=== PATIENT | female | born 1990 | race Caucasian/White ===

== ENCOUNTER 2021-08-24 09:52 | Emergency (ER) | payer OTHER ==
[~2021-08-24] VITALS: Ht 170.2 cm; Wt 89.4 kg
[2021-08-24 09:57] VITALS: BP 142/84
--- NOTE | 2021-08-24 10:02 | NUR ---
PT TRIAGED AND RETURNED TO LOBBY AT THIS TIME
--- NOTE | 2021-08-24 10:57 | NUR ---
PT AMBULATED TO BED 5.
[2021-08-24 11:04] VITALS: BP 133/85
--- NOTE | 2021-08-24 11:11 | NUR ---
30 Y/O F C/O RASH/ALLERGIC REACTION, REDNES AND SWELLIG TO HER R EAR AND L SIDE FACE AND CHIN 07:00 AM THIS MORNIG. NO COMPLAINS OF PAIN, ITCHING ONLY. ALLERGIES: PENUTS PMH: ASTHMA
--- NOTE | 2021-08-24 11:19 | NUR ---
Patient being evaluated by physician at bedside.
[2021-08-24] MEDS: predniSONE 20 MG TAB PO ONE (11:23)
[2021-08-24] MEDS: FAMOTIDINE 20 MG TAB PO ONE (11:23)
--- NOTE | 2021-08-24 11:25 | NUR ---
Helene held at this time. Pt states she is driving herself home.
[2021-08-24] MEDS: diphenhydrAMINE 50 MG CAP PO ONE (11:45)
[2021-08-24] MEDS ORDERED: PRED20TA5 PO (12:44)
[2021-08-24] MEDS ORDERED: DIPH25TA53 PO (12:44)
--- NOTE | 2021-08-24 13:01 | NUR ---
Patient discharged with v/s stable. Written and verbal after care instructions given and explained. Patient alert, oriented and verbalized understanding of instructions. Ambulatory with steady gait. All questions addressed prior to discharge. ID band removed. Patient advised to follow up with PMD. Rx of DIPHENHYDRAMINE HCI, PREDNISONE given. Opportunity to ask questions provided and answered.
== END 2021-08-24 13:00 | disposition home or self-care (01) ==
LOC: MED 09:52
DX: T78.40XA Allergy, unspecified, initial encounter (principal); J45.909 Unspecified asthma, uncomplicated; Z79.899 Other long term (current) drug therapy; Z98.890 Other specified postprocedural states; Z91.010 Allergy to peanuts; X58.XXXA Exposure to other specified factors, initial encounter
CPT/HCPCS: 99283; J7512; Q0163